=== PATIENT | male | born 1965 | race African-American/Black ===

== ENCOUNTER 2016-05-05 18:07 | Emergency (ER) | payer OTHER ==
[~2016-05-05] VITALS: Ht 185.4 cm; Wt 132.0 kg
[~2016-05-05 18:07] MED LIST: ALBUTEROL SULF8.5 GM IH; AVELOX400 MG PO; CLINDAMYCIN HC300 MG PO; GLUCOPHAGE500 MG PO; HYDROCHLOROTHIA25 MG PO; LEVAQUIN500 MG PO; LOSARTAN POTAS100 MG PO; MUCINEX D ER T1 EACH PO; NAPROSYN500 MG PO; NASONEX17 GM BOTH NARES; PREDNISONE20 MG PO; PREDNISONE50 MG PO; SIMVASTATIN10 MG PO; TESSALON PERLE100 MG PO; TYLENOL WITH C1 EACH PO; ZOCOR40 MG PO
[2016-05-05 18:40] VITALS: BP 166/132
[2016-05-05 19:10] LABS: HEMATOCRIT 50.3 % (38.0-50.0); MCHC 32.6 G/DL (30.0-36.0); MCV 82.7 FL (86-99); MEAN PLAT.VOLUME 11.4 uM^3 (9.0-12.4); PLATELET COUNT 199 K/uL (156-360); RBC DIS.WIDTH-CV 12.9 % (11.8-14.6); RBC DIS.WIDTH-SD 38.8 % (39-53); RED BLOOD COUNT 6.08 M/uL (4.00-5.50); WHITE BLOOD COUNT 7.1 K/uL (4.1-10.2)
[2016-05-05 19:18] LABS: CHLORIDE 102 mEq/L (99-109); POTASSIUM 4.3 mEq/L (3.7-5.4); SODIUM 141 mEq/L (136-147)
[2016-05-05 19:21] LABS: ANION GAP 12 MEQ/L (2-14); GLUCOSE 435 mg/dL (70-99)
[2016-05-05 19:23] LABS: GFR ESTIMATE (CALCULATED) > 59 mL/min/
[2016-05-05 19:24] LABS: UREA NITROGEN (BUN) 19 mg/dL (9-23)
[2016-05-06 10:52] LABS: POINT-OF-CARE METER ID UU13113778
== END 2016-05-05 20:57 | disposition left against medical advice (07) ==
LOC: EME 18:07
PROVIDERS: Emergency Medicine
DX: E16.2 Hypoglycemia, unspecified (principal); Z53.21 Procedure and treatment not carried out due to patient leaving prior to being seen by health care provider
CPT/HCPCS: 80048; 82948; 85027

== ENCOUNTER 2016-10-24 05:21 | Emergency (ER) | payer OTHER ==
[~2016-10-24] VITALS: Ht 185.4 cm; Wt 134.4 kg
[2016-10-24 06:10] LABS: HEMATOCRIT 49.3 % (38.0-50.0); MCH 27.3 PG (29.0-34.0); MCHC 31.8 G/DL (30.0-36.0); MCV 85.6 FL (86-99); MEAN PLAT.VOLUME 10.1 uM^3 (9.0-12.4); PLATELET COUNT 180 K/uL (156-360); RBC DIS.WIDTH-CV 12.4 % (11.8-14.6); RBC DIS.WIDTH-SD 38.5 % (39-53); RED BLOOD COUNT 5.76 M/uL (4.00-5.50); WHITE BLOOD COUNT 5.3 K/uL (4.1-10.2)
[2016-10-24 06:25] LABS: CHLORIDE 103 mEq/L (99-109); SODIUM 142 mEq/L (136-147)
[2016-10-24 06:27] LABS: GLUCOSE 116 mg/dL (70-99)
[2016-10-24 06:28] LABS: ANION GAP 11 MEQ/L (2-14)
[2016-10-24 06:29] LABS: TOTAL BILIRUBIN 0.4 mg/dL (0.0-1.0)
[2016-10-24 06:30] LABS: ALKALINE PHOSPHATASE 81 IU/L (3-129)
[2016-10-24 06:31] LABS: GFR ESTIMATE (CALCULATED) > 59 mL/min/
[2016-10-24 06:32] LABS: UREA NITROGEN (BUN) 15 mg/dL (9-23)
[2016-10-24 06:34] LABS: LIPASE 34 U/L (1.0-51.0)
[2016-10-24] MEDS ORDERED: ULTRAM50 MG PO (07:44)
[2016-10-24 08:25] VITALS: BP 166/101
== END 2016-10-24 08:26 | disposition home or self-care (01) ==
LOC: EME 05:21
PROVIDERS: Emergency Medicine
DX: R51 Headache (principal); I10 Essential (primary) hypertension; E78.5 Hyperlipidemia, unspecified; E11.9 Type 2 diabetes mellitus without complications; Z88.0 Allergy status to penicillin
CPT/HCPCS: 70450; 80053; 83690; 85027; 99281; 99283

== ENCOUNTER 2017-01-17 15:12 | Observation (INO) | payer OTHER ==
[~2017-01-17] VITALS: Ht 185.4 cm; Wt 136.0 kg
[~2017-01-17 15:12] MED LIST changes: +ULTRAM50 MG PO
[2017-01-17 16:00] LABS: EOSINOPHIL (%) 2.4 % (0-5); EOSINOPHIL COUNT 0.2 K/uL (0-0.3); IMMATURE GRANULOCYTE (%) 0.3 % (0.0-0.7); INSTRUMENT ABS NEUTROPHIL CT 3.6 K/uL; MCH 27.7 PG (29.0-34.0); MCHC 32.2 G/DL (30.0-36.0); MCV 86.3 FL (86-99); MEAN PLAT.VOLUME 10.5 uM^3 (9.0-12.4); MONOCYTE (%) 6.5 % (3-12); MONOCYTE COUNT 0.4 K/uL (0-0.8); NEUTROPHIL (%) 58.4 % (45-76); NEUTROPHIL COUNT 3.6 K/uL (1.8-6.4); PLATELET COUNT 182 K/uL (156-360); RBC DIS.WIDTH-CV 12.9 % (11.8-14.6); RBC DIS.WIDTH-SD 40.4 % (39-53); RED BLOOD COUNT 5.91 M/uL (4.00-5.50); WHITE BLOOD COUNT 6.2 K/uL (4.1-10.2)
[2017-01-17 16:07] LABS: CHLORIDE 103 mEq/L (99-109); SODIUM 137 mEq/L (136-147)
[2017-01-17 16:10] LABS: GLUCOSE 209 mg/dL (70-99)
[2017-01-17 16:11] LABS: ANION GAP 7 MEQ/L (2-14)
[2017-01-17 16:12] LABS: TOTAL BILIRUBIN 0.4 mg/dL (0.0-1.0)
[2017-01-17 16:13] LABS: ALKALINE PHOSPHATASE 86 IU/L (3-129); GFR ESTIMATE (CALCULATED) > 59 mL/min/
[2017-01-17 16:14] LABS: UREA NITROGEN (BUN) 14 mg/dL (9-23)
[2017-01-17 16:22] LABS: TROP-I INTERPRETATION NEGATIVE; TROPONIN-I < 0.01 ng/mL (0.0-0.30)
[2017-01-17] MEDS ORDERED: DIABETA5 MG PO (18:55)
[2017-01-17] MEDS ORDERED: TRIAMTERENE-HC1 EAC1 PO (18:56)
[2017-01-17] MEDS ORDERED: METOPROLOL SUC100 MG PO (18:57)
[2017-01-17] MEDS ORDERED: SIMVASTATIN20 MG PO (18:57)
[2017-01-17] MEDS ORDERED: BUTALB-APAP-CA1 EACH PO (18:58)
[2017-01-17] MEDS ORDERED: ERGOCALCIF50000 UNIT PO (19:00)
[2017-01-17 20:53] LABS: AMPHETAMINE NEGATIVE (500 ng/mL); BARBITURATES NEGATIVE (200 ng/mL); BENZODIAZEPINES NEGATIVE (150 ng/mL); COCAINE NEGATIVE (150 ng/mL); INTERNAL CONTROLS VALID? YES; METHADONE NEGATIVE (200 ng/mL); METHAMPHETAMINE NEGATIVE (500 ng/mL); OPIATES (MORPHINE) NEGATIVE (100 ng/mL); OXYCODONE NEGATIVE (100 ng/mL); PHENCYCLIDINE PRESUMPTIVE POSITIVE (25 ng/mL); PROPOXYPHENE NEGATIVE (300 ng/mL); THC CANNABINOIDS NEGATIVE (50 ng/mL); TRICYCLIC ANTIDEPRESSANTS NEGATIVE (300 ng/mL)
[2017-01-17 20:54] LABS: ADD MEDTOX COMMENT Y
[2017-01-17 21:58] VITALS: BP 193/116
[2017-01-17 21:59] LABS: POINT-OF-CARE METER ID UU13113831
[2017-01-17 23:45] VITALS: BP 143/67
[2017-01-17 23:58] LABS: TROP-I INTERPRETATION NEGATIVE; TROPONIN-I < 0.01 ng/mL (0.0-0.30)
[2017-01-18 03:20] VITALS: BP 113/58
[2017-01-18 04:32] LABS: HEMATOCRIT 48.1 % (38.0-50.0); MCH 27.3 PG (29.0-34.0); MCV 85.3 FL (86-99); MEAN PLAT.VOLUME 10.4 uM^3 (9.0-12.4); PLATELET COUNT 166 K/uL (156-360); RBC DIS.WIDTH-SD 40.3 % (39-53); RED BLOOD COUNT 5.64 M/uL (4.00-5.50); WHITE BLOOD COUNT 6.3 K/uL (4.1-10.2)
[2017-01-18 04:44] LABS: CHLORIDE 106 mEq/L (99-109); POTASSIUM 3.7 mEq/L (3.7-5.4); SODIUM 140 mEq/L (136-147)
[2017-01-18 04:46] LABS: GLUCOSE 150 mg/dL (70-99)
[2017-01-18 04:47] LABS: ANION GAP 9 MEQ/L (2-14)
[2017-01-18 04:49] LABS: GFR ESTIMATE (CALCULATED) > 59 mL/min/
[2017-01-18 04:50] LABS: UREA NITROGEN (BUN) 13 mg/dL (9-23)
[2017-01-18 04:54] LABS: TROP-I INTERPRETATION NEGATIVE; TROPONIN-I 0.01 ng/mL (0.0-0.30)
[2017-01-18 08:00] VITALS: BP 134/79
[2017-01-18 08:04] LABS: POINT-OF-CARE METER ID UU13113831
[2017-01-18] MEDS ORDERED: NITROSTAT0.4 MG SL (10:40)
[2017-01-18] MEDS ORDERED: AMLODIPINE BESYL5 MG PO (11:38)
== END 2017-01-18 11:56 | disposition home or self-care (01) ==
LOC: EME 15:12 → EDOF 20:32 → 5WEST 20:32 → EDOF 20:32 → ENRESERV 20:33 → 5WEST 21:30 → ENPENDDIS 01-18 → 5WEST 01-18 11:56
PROVIDERS: Emergency Medicine; Hospitalist
DX: R07.89 Other chest pain (principal); I10 Essential (primary) hypertension; E11.9 Type 2 diabetes mellitus without complications; R68.84 Jaw pain; M79.602 Pain in left arm; E78.5 Hyperlipidemia, unspecified; Z82.49 Family history of ischemic heart disease and other diseases of the circulatory system; E66.01 Morbid (severe) obesity due to excess calories; Z68.39 Body mass index [BMI] 39.0-39.9, adult; Z86.19 Personal history of other infectious and parasitic diseases; Z87.891 Personal history of nicotine dependence; F14.11 Cocaine abuse, in remission
CPT/HCPCS: 70498; 71275; 80048; 80053; 82948; 84484; 84999; 85025; 85027; 93005; 99281; 99285; G0378; J0360; J2270; J7040

== ENCOUNTER 2017-01-24 16:27 | Emergency (ER) | payer OTHER ==
[~2017-01-24] VITALS: Ht 185.4 cm; Wt 135.6 kg
[~2017-01-24 16:27] MED LIST changes: +AMLODIPINE BESYL5 MG PO; +BUTALB-APAP-CA1 EACH PO; +DIABETA5 MG PO; +ERGOCALCIF50000 UNIT PO; +METOPROLOL SUC100 MG PO; +NITROSTAT0.4 MG SL; +SIMVASTATIN20 MG PO; +TRIAMTERENE-HC1 EAC1 PO
[2017-01-24 18:23] LABS: EOSINOPHIL (%) 1.7 % (0-5); EOSINOPHIL COUNT 0.1 K/uL (0-0.3); HEMATOCRIT 51.6 % (38.0-50.0); IMMATURE GRANULOCYTE (%) 0.2 % (0.0-0.7); INSTRUMENT ABS NEUTROPHIL CT 3.7 K/uL; MCH 27.4 PG (29.0-34.0); MCHC 31.6 G/DL (30.0-36.0); MCV 86.7 FL (86-99); MEAN PLAT.VOLUME 10.3 uM^3 (9.0-12.4); MONOCYTE (%) 7.8 % (3-12); MONOCYTE COUNT 0.5 K/uL (0-0.8); NEUTROPHIL (%) 58.8 % (45-76); NEUTROPHIL COUNT 3.7 K/uL (1.8-6.4); PLATELET COUNT 198 K/uL (156-360); RBC DIS.WIDTH-CV 13.1 % (11.8-14.6); RBC DIS.WIDTH-SD 41.1 % (39-53); RED BLOOD COUNT 5.95 M/uL (4.00-5.50); WHITE BLOOD COUNT 6.4 K/uL (4.1-10.2)
[2017-01-24 18:30] LABS: PROTHROMBIN TIME 11.4 SEC (10.2-12.9)
[2017-01-24 18:31] LABS: D-DIMER ELISA < 150.00 ng/mLDDU (<230)
[2017-01-24 18:32] LABS: CHLORIDE 107 mEq/L (99-109); POTASSIUM 3.9 mEq/L (3.7-5.4); PTT 33.7 SEC (25-37); SODIUM 143 mEq/L (136-147)
[2017-01-24 18:33] LABS: GLUCOSE 121 mg/dL (70-99)
[2017-01-24 18:35] LABS: ANION GAP 8 MEQ/L (2-14)
[2017-01-24 18:37] LABS: GFR ESTIMATE (CALCULATED) > 59 mL/min/
[2017-01-24 18:38] LABS: UREA NITROGEN (BUN) 13 mg/dL (9-23)
[2017-01-24 18:43] LABS: TROP-I INTERPRETATION NEGATIVE; TROPONIN-I < 0.01 ng/mL (0.0-0.30)
[2017-01-24] MEDS ORDERED: CLEOCIN300 MG PO (21:04)
[2017-01-24 21:29] VITALS: BP 151/89
== END 2017-01-24 21:47 | disposition home or self-care (01) ==
LOC: EME 16:27
PROVIDERS: Emergency Medicine
DX: R07.9 Chest pain, unspecified (principal); M79.661 Pain in right lower leg; K21.9 Gastro-esophageal reflux disease without esophagitis; I10 Essential (primary) hypertension; E78.5 Hyperlipidemia, unspecified; E11.9 Type 2 diabetes mellitus without complications; Z87.891 Personal history of nicotine dependence; Z88.0 Allergy status to penicillin
CPT/HCPCS: 71010; 80048; 84484; 85025; 85379; 85610; 85730; 93005; 93971; 99281; 99284